=== PATIENT | male | born 1995 | race Caucasian/White ===

== ENCOUNTER 2025-09-10 20:28 | Inpatient (IN) | payer OTHER ==
[~2025-09-10] VITALS: Ht 182.9 cm; Wt 70.5 kg
[2025-09-10] MEDS ORDERED: ACETAMINOPHEN 325 MG TABLET PO PRN (22:15)
[2025-09-10] MEDS ORDERED: MAGNESIUM HYDROXIDE SUSPENSION 30 ML UDCUP PO PRN (22:15)
[2025-09-10] MEDS ORDERED: ONDANSETRON HCL 4 MG/2 ML VIAL IVP PRN (22:15)
[2025-09-10 22:22] LABS: APPEARANCE,URINE CLEAR (CLEAR); GLUCOSE, URINE (UA) NEGATIVE (NEGATIVE); LEUKOCYTE ESTERASE ,URINE NEGATIVE (NEGATIVE); NITRATE,URINE NEGATIVE (NEGATIVE); OCCULT BLOOD,URINE NEGATIVE (NEGATIVE); SPECIFIC GRAVITIY, URINE 1.045 (1.003-1.030)
[2025-09-10 22:23] LABS: PLATELET COUNT (AUTO) 364 K/uL (150-450); RED BLOOD CELL COUNT(AUTO) 4.82 MIL/uL (4.50-5.90); RED CELL DISTRIBUTION WIDTH 13.6 % (11.5-14.5); WHITE BLOOD COUNT (AUTO) 11.1 K/uL (4.5-11.0)
[2025-09-10 22:25] LABS: CALCIUM, TOTAL 8.3 mg/dL (8.8-10.5); CREATININE 0.75 mg/dL (0.60-1.30); GLOMERULAR FILTR. RATE CALC > 60 mL/min (>60); GLUCOSE,RANDOM 89 mg/dL (70-110); SODIUM SERUM 145 mmol/L (136-145); UREA NITROGEN, BLOOD 24 mg/dL (7-18)
[2025-09-10 22:25] LABS: PH,URINE DRUG SCREEN 6.0 (5.0-8.0)
[2025-09-10 22:29] LABS: ALCOHOL, URINE DRUG SCREEN NEGATIVE (NEGATIVE); AMPHET/METH SCREEN,URINE POSITIVE (NEGATIVE); BARBITURATE SCREEN, URINE NEGATIVE (NEGATIVE); CANNABINOID SCREEN,URINE NEGATIVE (NEGATIVE); COCAINE SCREEN,URINE NEGATIVE (NEGATIVE); METHADONE SCREEN, URINE NEGATIVE (NEGATIVE)
[2025-09-10] MEDS: SODIUM CHLORIDE 0.9% 1,000 ML IV ONE (22:35)
[2025-09-11] MEDS: ZOLPIDEM TARTRATE 5 MG TABLET PO PRN (00:29)
[2025-09-11 00:31] VITALS: BP 108/56; PULSE 73; RESP 17; TEMP 97.7; O2SAT 98
[2025-09-11 04:57] VITALS: BP 132/73; PULSE 88; RESP 18; TEMP 98.2; O2SAT 98
[2025-09-11] MEDS: FAMOTIDINE 20 MG TABLET PO SCH (08:18)
[2025-09-11 08:30] VITALS: BP 108/85; PULSE 79; RESP 20; TEMP 97.9; O2SAT 100
[2025-09-11 20:11] VITALS: BP 116/70; PULSE 78; RESP 18; TEMP 97.9; O2SAT 99
[2025-09-12 05:08] LABS: HEPATITIS C AB (EIA) Non Reactive (Non Reactive)
[2025-09-12 05:24] VITALS: BP 110/69; PULSE 70; RESP 18; TEMP 97.9; O2SAT 98
[2025-09-12 08:35] VITALS: BP 113/77; PULSE 85; RESP 18; TEMP 98.1; O2SAT 98
[2025-09-12] MEDS ORDERED: ACET-2247 PO (15:26)
== END 2025-09-12 18:30 | DRG 897 ==
LOC: EMS 20:35 → EDH 22:02 → 6S 09-11 00:21
PROVIDERS: ADMIT Internal Medicine; ATTEND Internal Medicine
PROC: GZ58ZZZ Individual Psychotherapy, Cognitive-Behavioral (ICD-10-PCS; principal; 2025-09-11)
PROC: GZ56ZZZ Individual Psychotherapy, Supportive (ICD-10-PCS; 2025-09-11)
DX: F11.13 Opioid abuse with withdrawal (principal); F19.10 Other psychoactive substance abuse, uncomplicated; F32.9 Major depressive disorder, single episode, unspecified; F15.10 Other stimulant abuse, uncomplicated; F12.10 Cannabis abuse, uncomplicated; F20.9 Schizophrenia, unspecified; J44.9 Chronic obstructive pulmonary disease, unspecified; G47.00 Insomnia, unspecified; Z87.891 Personal history of nicotine dependence
CPT/HCPCS: 80048; 80307; 81003; 85025; 86803; 87340; 99285; G0378; J7030